=== PATIENT | male | born 1955 | race Caucasian/White ===

== ENCOUNTER 2019-05-07 13:24 | Emergency (ER) | payer BC ==
[~2019-05-07] VITALS: Ht 188 cm; Wt 106.0 kg
[2019-05-07] MEDS ORDERED: PROPOFOL 10 MG/ML, 20ML IVPush ONE (13:30)
[2019-05-07] MEDS ORDERED: SODIUM CHLORIDE FLUSH 10ML SYR IVF ONE (13:30)
--- NOTE | 2019-05-07 13:48 | NUR ---
PT TO ROOM 37 PER [facility]. PT WAS AT HOME PUTTING UP CROWN MOLDING IN THE HOUSE, AND WHEN HE WAS COMING DOWN THE LADDER, HE MISSED THE 3RD RUNG FROM THE BOTTOM AND FELL CAUSING A DEFORMITY TO THE LEFT WRIST. PT DENIES HITTING HEAD, AND HAS NO OTHER INJURY THAT IS VISIBLE. FULL BODY INSPECTION SHOWS NO WOUNDS, CUTS OR ABRASIONS. PT IS A PLEASANT 64YO MALE WHO LOOKS HIS STATED AGE. PT HAS ONLY A HISTORY OF HTN AND TAKES ONE MEDICATION. IS AT BEDSIDE. PT HAS SPLINT TO LEFT WRIST THAT WAS PLACED BY [facility]. ARM IS BEING ELEVATED BY A FOLDED PILLOW, (BLANKET ADDED TO PILLOW SO RIGHT ARM CAN BE FREED FOR EQUIPMENT PLACEMENT), AND A 22GA IV IN HIS RIGHT HAND. [facility] HAS ADMINISTERED 150MCG OF FENTANYL AND 4 MG OF IV ZOFRAN. PT SHIRT REMOVED CAREFULLY WITH HELP FROM PATIENT. PT PLACED ON MONITOR, GOWN ON PATIENT, WARM BLANKET FOR COMFORT AND CALL LIGHT WITH INSTRUCTIONS. RADHA CLARK STUDENT IN TO ASSESS PATIENT. ORDERS BEING PLACED.
[2019-05-07] MEDS ORDERED: PLEASE ENTER ALLERGIES MC SCH (14:00)
[2019-05-07] MEDS ORDERED: PLEASE ENTER HEIGHT AND WEIGHT MC SCH (14:00)
[2019-05-07] MEDS ORDERED: PROPOFOL 10 MG/ML, 20ML ONE (14:12)
--- NOTE | 2019-05-07 14:13 | NUR ---
TERRELL PREPPING PATIENT FOR CONSCIENCE SEDATION. PT VERBALIZES UNDERSTANDING OF WHAT IS GOING TO TAKE PLACE TO FIX HIS WRIST FX. REMAINS AT BEDSIDE.
--- NOTE | 2019-05-07 14:21 | NUR ---
REPORT TO KAILEE RAE
[2019-05-07] MEDS ORDERED: LISI-167 PO (14:28)
--- NOTE | 2019-05-07 14:51 | NUR ---
CONSENT SIGNED FOR SEDATION. SEDATION DONE. PT TOLERATED WELL. PT AWAKE AND TALKING. VS STABLE. REPORT GIVEN TO BUTCH MCKEON.
--- NOTE | 2019-05-07 15:30 | NUR ---
PROCEDURE FINISHED. PT IS AWAKE A/O X4. PT DENIES PAIN WHEN NOT MOVING, PT C/O PAIN WITH MOVEMENT, BUT IS NOW TOLERABLE. PT C/O NUMBNESS AND TINGLING IN HIS LEFT HAND AND FINGERTIPS. RN DISCUSSES CARE TO THE SPLINTED CAST ALONG WITH USE OF SLING AND NARCOTIC PAIN MEDICATIONS. PT VERBALIZES UNDERSTANDIN OF ALL INSTRUCIONS AND FOLLOW UP. MD COMES INTO ROOM DURING THE DISCHARGE MD ENTERS THE ROOM AND INFORMS PATIENT THAT HE HAS SPOKEN TO THE ORTHO DOCTOR, WHOM WILL SEE THE PATIENT TOMORROW. SON AND [id number] VERBALIZE UNDERSTANDING OF FOLLOW UP.
[2019-05-07] MEDS ORDERED: HYDROcodone/APAP 5/325 TABLET ONE (15:41)
[2019-05-07] MEDS ORDERED: ACETAMINOPHEN 500 MG TABLET ONE (15:42)
[2019-05-07] MEDS ORDERED: HYDROcodone/APAP 5/325 TABLET PO ONE (16:00)
[2019-05-07 16:38] VITALS: BP 130/77
== END 2019-05-07 16:45 | disposition home or self-care (01) ==
LOC: ED 14:30
DX: S52.502A Unspecified fracture of the lower end of left radius, initial encounter for closed fracture (principal); W01.0XXA Fall on same level from slipping, tripping and stumbling without subsequent striking against object, initial encounter; Y93.89 Activity, other specified; Y92.009 Unspecified place in unspecified non-institutional (private) residence as the place of occurrence of the external cause; Y99.8 Other external cause status
CPT/HCPCS: 25605; 73100; 73110; 73130; 99285; J2704

== ENCOUNTER 2019-05-09 09:49 | Day surgery (SDC) | payer BC ==
[~2019-05-09] VITALS: Ht 188 cm; Wt 113.0 kg
[~2019-05-09 09:49] MED LIST: LISI-167 PO
[2019-05-09] MEDS ORDERED: LACTATED RINGERS 1,000 ML IV SCH (10:25)
[2019-05-09] MEDS ORDERED: LIDOCAINE-MPF 1%, 2ML INFIL ONE (10:30)
[2019-05-09] MEDS ORDERED: OXYC-302 PO (10:33)
[2019-05-09 10:46] VITALS: BP 158/113
[2019-05-09] MEDS ORDERED: MIDAZOLAM 1 MG/ML, 2ML ONE (11:00)
[2019-05-09] MEDS ORDERED: FENTANYL PF 100 MCG/2ML ONE (11:01)
[2019-05-09 11:15] LABS: ALANINE AMINOTRANSFERASE 20 U/L (12-78); ALBUMIN 3.7 g/dL (3.4-5.0); ANION GAP 9 mmol/L (5-15); CALCIUM 8.9 mg/dL (8.5-10.1); CHLORIDE 111 mmol/L (98-107); CREATININE 0.83 mg/dL (0.7-1.3)
[2019-05-09 11:17] LABS: ALKALINE PHOSPHATASE 62 U/L (45-117); BILIRUBIN,TOTAL 0.7 mg/dL (0.2-1.0); TOTAL PROTEIN 7.4 g/dL (6.4-8.2)
[2019-05-09] MEDS ORDERED: BUPIVACAINE/PF 0.5% ONE (12:03)
[2019-05-09] MEDS ORDERED: BUPIVACAINE/PF 0.5% INFIL ONE (12:49)
[2019-05-09] MEDS ORDERED: CEFAZOLIN 1,000 MG ONE ×2 (13:08→13:09)
[2019-05-09] MEDS ORDERED: DEXAMETHASONE 4 MG/ML, 1ML ONE (13:08)
[2019-05-09] MEDS ORDERED: PROPOFOL 10 MG/ML, 20ML ONE (13:08)
[2019-05-09] MEDS ORDERED: ONDANSETRON 2MG/ML, 2ML ONE (13:08)
[2019-05-09] MEDS ORDERED: LABETALOL 5MG/ML, 20ML IV PRN (13:30)
[2019-05-09] MEDS ORDERED: PROMETHAZINE 25 MG/ML, 1ML IV PRN (13:30)
[2019-05-09] MEDS ORDERED: MEPERIDINE/PF 25MG/0.5ML IVPush PRN (13:30)
[2019-05-09] MEDS ORDERED: OXYcodone 5 MG/5 ML ORAL.SOL UDC PO PRN (13:30)
[2019-05-09] MEDS ORDERED: HYDROmorphone 2 MG/ML, 1ML IVPush PRN (13:30)
[2019-05-09] MEDS ORDERED: KETOROLAC 30 MG/1 ML IV PRN (13:30)
[2019-05-09] MEDS ORDERED: ALBUTEROL SULFATE 2.5 MG/3 ML NPPB PRN (13:30)
[2019-05-09] MEDS ORDERED: DIAZEPAM 5 MG/ML, 2ML IVPush PRN (13:30)
[2019-05-09] MEDS ORDERED: FENTANYL PF 100 MCG/2ML IV PRN (13:30)
[2019-05-09] MEDS ORDERED: hydrALAzine 20 MG/ML, 1ML IV PRN (13:30)
[2019-05-09] MEDS ORDERED: ACETAMINOPHEN 325 MG TABLET PO PRN (13:30)
== END 2019-05-09 17:40 | disposition home or self-care (01) ==
LOC: OUT 09:49
PROVIDERS: ATTEND Orthopaedic Surgery
DX: S52.552A Other extraarticular fracture of lower end of left radius, initial encounter for closed fracture (principal); I10 Essential (primary) hypertension; Z79.899 Other long term (current) drug therapy; W18.39XA Other fall on same level, initial encounter; Y93.89 Activity, other specified; Y92.89 Other specified places as the place of occurrence of the external cause; Y99.8 Other external cause status
CPT/HCPCS: 25607; 36415; 64415; 71045; 73100; 80053; 93005; C1713; J0690; J1100; J2250; J2405; J2704; J3010; J7120; 76000